=== PATIENT | female | born 1990 | race Caucasian/White ===

== ENCOUNTER 2016-10-28 10:27 | Emergency (ER) | payer MEDICAID ==
[~2016-10-28] VITALS: Ht 172.7 cm; Wt 92.3 kg
[2016-10-28 10:29] VITALS: BP 129/66; TEMP 98.1
[2016-10-28 12:04] LABS: BASO % 0.1 % (0.0-2.0); EOS % 0.1 % (0-4.0); GRAN # 8.3 (1.4-6.5); GRAN % 76.4 % (42.2-75.2); HEMATOCRIT 38.5 % (37.0-47.0); HEMOGLOBIN 12.4 g/dl (12.5-16.0); LYMPH # 1.7 (1.2-3.4); LYMPH % 15.3 % (20.0-51.0); MEAN CELL VOLUME 81 fl (80.0-100.0); MEAN CORPUSCULAR HEMOGLOBIN 26 pg (27.0-31.0); MEAN CORPUSCULAR HGB CONC 32 g/dl (33.0-37.0); MEAN PLATELET VOLUME 10.5 fl (7.4-10.4); MONO # 0.8 (0.1-0.6); MONO % 7.7 % (1.7-9.3); PLATELET COUNT 277 K/mm3 (130-400); RED BLOOD COUNT 4.77 M/mm3 (4.10-5.30); WHITE BLOOD COUNT 10.8 K/mm3 (4.8-10.8)
[2016-10-28 12:12] LABS: ADJUSTED CALCIUM 9.2 mg/dL (8.4-10.2); ALBUMIN 4.3 gm/dL (3.5-5.0); BILIRUBIN,TOTAL 0.8 mg/dL (0.0-1.0); CALCIUM 9.4 mg/dL (8.4-10.2); CREATININE, serum 0.63 mg/dL (0.52-1.25); POTASSIUM 3.4 mmol/L (3.4-5.0); TOTAL PROTEIN 7.6 gm/dL (6.4-8.2)
[2016-10-28 12:47] LABS: PH 5 (5-8); SQUAMOUS EPITHELIAL 20-50 /hpf; URINE APPEARANCE Cloudy; URINE BACTERIA Occasional /hpf; URINE BILIRUBIN Negative (NEGATIVE); URINE BLOOD Negative (NEGATIVE); URINE COLOR Amber; URINE GLUCOSE Negative (NEGATIVE); URINE KETONE 2+ (NEGATIVE)
[2016-10-28 12:53] LABS: URINE WBC >50 /hpf
[2016-10-28] MEDS ORDERED: MACROBID 1100 MG/CAP PO (13:07)
[2016-10-28] MEDS ORDERED: ZOFRAN ODT4 MG PO (13:07)
[2016-10-28 14:05] VITALS: PULSE 87
== END 2016-10-28 14:19 | disposition home or self-care (01) ==
LOC: COL.ER 10:27
PROVIDERS: Emergency Medicine
DX: O21.0 Mild hyperemesis gravidarum (principal); Z3A.01 Less than 8 weeks gestation of pregnancy
CPT/HCPCS: J0696; J2765; J7030

== ENCOUNTER 2016-12-02 18:25 | Emergency (ER) | payer MEDICAID ==
[~2016-12-02] VITALS: Ht 172.7 cm; Wt 88.6 kg
[~2016-12-02 18:25] MED LIST: MACROBID 1100 MG/CAP PO; ZOFRAN ODT4 MG PO
[2016-12-02 18:27] VITALS: TEMP 97.6
[2016-12-02] MEDS ORDERED: CONCEPT DHA1 CAP PO (19:30)
[2016-12-02 19:51] LABS: BASO % 0.2 % (0.0-2.0); EOS % 0.1 % (0-4.0); GRAN # 9.2 (1.4-6.5); GRAN % 76.8 % (42.2-75.2); HEMATOCRIT 39.1 % (37.0-47.0); HEMOGLOBIN 13.1 g/dl (12.5-16.0); LYMPH # 1.9 (1.2-3.4); LYMPH % 16.2 % (20.0-51.0); MEAN CELL VOLUME 81 fl (80.0-100.0); MEAN CORPUSCULAR HEMOGLOBIN 27 pg (27.0-31.0); MEAN CORPUSCULAR HGB CONC 34 g/dl (33.0-37.0); MEAN PLATELET VOLUME 9.9 fl (7.4-10.4); MONO # 0.8 (0.1-0.6); MONO % 6.4 % (1.7-9.3); PLATELET COUNT 264 K/mm3 (130-400); RED BLOOD COUNT 4.84 M/mm3 (4.10-5.30); REDCELL DISTRIBUTION WIDTH-CV 15.5 % (11.5-14.5)
[2016-12-02 20:01] LABS: ADJUSTED CALCIUM 9.8 mg/dL (8.4-10.2); ALBUMIN 4.3 gm/dL (3.5-5.0); BILIRUBIN,TOTAL 0.6 mg/dL (0.0-1.0); CREATININE, serum 0.45 mg/dL (0.52-1.25); POTASSIUM 3.3 mmol/L (3.4-5.0); TOTAL PROTEIN 7.7 gm/dL (6.4-8.2)
[2016-12-02 20:42] VITALS: BP 124/69; PULSE 73
== END 2016-12-02 21:15 | disposition home or self-care (01) ==
LOC: COL.ER 18:25
PROVIDERS: Emergency Medicine
DX: O21.9 Vomiting of pregnancy, unspecified (principal); Z3A.14 14 weeks gestation of pregnancy; R00.0 Tachycardia, unspecified
CPT/HCPCS: J2550; J7030

== ENCOUNTER 2017-04-21 17:45 | Inpatient (IN) | payer MEDICAID ==
[~2017-04-21] VITALS: Ht 172.7 cm; Wt 104.3 kg
[~2017-04-21 17:45] MED LIST changes: +CONCEPT DHA1 CAP PO
[2017-04-21 18:30] LABS: MEAN CELL VOLUME 82 fl (80.0-100.0); MEAN CORPUSCULAR HGB CONC 32 g/dl (33.0-37.0); MEAN PLATELET VOLUME 9.6 fl (7.4-10.4); PLATELET COUNT 208 K/mm3 (130-400); RED BLOOD COUNT 4.09 M/mm3 (4.10-5.30)
[2017-04-21 18:34] LABS: HEMATOCRIT 33.5 % (37.0-47.0); HEMOGLOBIN 10.7 g/dl (12.5-16.0); MEAN CORPUSCULAR HEMOGLOBIN 26 pg (27.0-31.0); WHITE BLOOD COUNT 26.2 K/mm3 (4.8-10.8)
[2017-04-21 18:35] LABS: ADD PATHOLOGY DIFF REVIEW NO
[2017-04-21 18:38] LABS: ADJUSTED CALCIUM 9.9 mg/dL (8.4-10.2); ALBUMIN 3.4 gm/dL (3.5-5.0); BILIRUBIN,TOTAL 0.8 mg/dL (0.0-1.0); CALCIUM 9.4 mg/dL (8.4-10.2); CREATININE, serum 0.56 mg/dL (0.52-1.25); POTASSIUM 3.2 mmol/L (3.4-5.0); TOTAL PROTEIN 6.8 gm/dL (6.4-8.2)
[2017-04-21 18:48] LABS: BAND 2 % (0-10); BASOPHIL 1 % (0-2); LYMPHOCYTE 8 % (20.0-51.0); NEUTROPHILS 87 % (42.0-75.2); TOTAL CELLS COUNTED 100
[2017-04-21 18:49] LABS: ANISOCYTOSIS 2+; HYPOCHROMIA 1+; POLYCHROMASIA 1+; ROULEAUX 2+; TOXIC GRANULATION PRESENT
[2017-04-21 18:50] LABS: MICROCYTOSIS 1+; POIKILOCYTOSIS 1+; STOMATOCYTE 1+
[2017-04-21 18:51] LABS: TEAR DROP CELLS 1+
[2017-04-21] MEDS ORDERED: NATURAL IRON65 MG (19:24)
[2017-04-21 19:49] LABS: COLLECTION METHOD CLEAN CATCH
[2017-04-21 19:58] LABS: MUCOUS Present /lpf; PH 5 (5-8); SQUAMOUS EPITHELIAL 20-50 /hpf; URINE APPEARANCE Cloudy; URINE BACTERIA Rare /hpf; URINE BILIRUBIN Negative (NEGATIVE); URINE BLOOD Negative (NEGATIVE); URINE COLOR Amber; URINE GLUCOSE Negative (NEGATIVE); URINE KETONE 2+ (NEGATIVE); URINE LEUKOCYTE ESTERASE 3+ (NEGATIVE); URINE PROTEIN(semi-quant) 3+ (NEGATIVE); URINE RBC 20-50 /hpf
[2017-04-21 20:00] LABS: URINE WBC >50 /hpf
[2017-04-21 20:44] LABS: INFLUENZA A NEGATIVE; INFLUENZA B NEGATIVE
[2017-04-21 20:50] VITALS: BP 135/63; PULSE 119; TEMP 98.7
[2017-04-22] VITALS (11 sets, daily range): BP systolic 103–146; BP diastolic 32–78; PULSE 102–140; TEMP 98–102.7
[2017-04-22 07:39] LABS: MEAN CELL VOLUME 84 fl (80.0-100.0); MEAN CORPUSCULAR HGB CONC 31 g/dl (33.0-37.0); MEAN PLATELET VOLUME 9.8 fl (7.4-10.4); PLATELET COUNT 181 K/mm3 (130-400); RED BLOOD COUNT 3.78 M/mm3 (4.10-5.30)
[2017-04-22 07:40] LABS: HEMATOCRIT 31.9 % (37.0-47.0); MEAN CORPUSCULAR HEMOGLOBIN 26 pg (27.0-31.0); WHITE BLOOD COUNT 22.4 K/mm3 (4.8-10.8)
[2017-04-22 07:49] LABS: BILIRUBIN,TOTAL 0.6 mg/dL (0.0-1.0); CALCIUM 9.2 mg/dL (8.4-10.2); CREATININE, serum 0.59 mg/dL (0.52-1.25); POTASSIUM 3.1 mmol/L (3.4-5.0)
[2017-04-22 08:14] LABS: ARTERIAL BLD GAS O2 SATURATION 95.2 % (92-100); ARTERIAL BLD GAS TCO2 CT 16.4; ARTERIAL BLOOD GAS HCO3 15.6 meq/L (22-26); ARTERIAL BLOOD GAS PO2 82.2 mmHg (80-100); ARTERIAL BLOOD GAS PO2T 82.2 (80-100); OXYHEMOGLOBIN 94.4 %
[2017-04-22 08:15] LABS: ATS? YES
[2017-04-22 09:18] LABS: ADD PATHOLOGY DIFF REVIEW YES; ANISOCYTOSIS 1+; BAND 53 % (0-10); LYMPHOCYTE 9 % (20.0-51.0); METAMYELOCYTE 1 % (0-0); NEUTROPHILS 35 % (42.0-75.2); PLATELET ESTIMATE NORMAL (NORMAL); TOTAL CELLS COUNTED 100
[2017-04-23] VITALS: BP 125/47; PULSE 102; TEMP 99.4
[2017-04-23 04:00] VITALS: BP 134/54; PULSE 101; TEMP 98.6
[2017-04-23 07:10] VITALS: BP 124/68; PULSE 86; TEMP 97.8
[2017-04-23 07:11] LABS: MEAN CELL VOLUME 84 fl (80.0-100.0); MEAN CORPUSCULAR HGB CONC 31 g/dl (33.0-37.0); MEAN PLATELET VOLUME 9.5 fl (7.4-10.4); PLATELET COUNT 174 K/mm3 (130-400); RED BLOOD COUNT 3.49 M/mm3 (4.10-5.30)
[2017-04-23 07:16] LABS: ADD PATHOLOGY DIFF REVIEW NO; HEMATOCRIT 29.2 % (37.0-47.0); HEMOGLOBIN 9.1 g/dl (12.5-16.0); MEAN CORPUSCULAR HEMOGLOBIN 26 pg (27.0-31.0)
[2017-04-23 07:21] LABS: ADJUSTED CALCIUM 10.1 mg/dL (8.4-10.2); ALBUMIN 2.7 gm/dL (3.5-5.0); BILIRUBIN,TOTAL 0.4 mg/dL (0.0-1.0); CALCIUM 9.1 mg/dL (8.4-10.2); CREATININE, serum 0.63 mg/dL (0.52-1.25); TOTAL PROTEIN 5.7 gm/dL (6.4-8.2)
[2017-04-23 07:27] LABS: POTASSIUM 2.7 mmol/L (3.4-5.0)
[2017-04-23 09:55] LABS: ANISOCYTOSIS 1+; BAND 66 % (0-10); LYMPHOCYTE 7 % (20.0-51.0); METAMYELOCYTE 1 % (0-0); NEUTROPHILS 25 % (42.0-75.2); PLATELET ESTIMATE NORMAL (NORMAL); TOTAL CELLS COUNTED 100
[2017-04-23 12:57] VITALS: BP 131/83; PULSE 120; TEMP 98.3
[2017-04-23 16:30] VITALS: BP 117/56; PULSE 101; TEMP 97.9
[2017-04-23 20:00] VITALS: BP 12/57; PULSE 93; TEMP 97.6
[2017-04-24] VITALS: BP 136/49; PULSE 98; TEMP 98.6
[2017-04-24 04:00] VITALS: BP 134/55; PULSE 106; TEMP 99.1
[2017-04-24 07:04] VITALS: BP 143/56; PULSE 90; TEMP 98.1
[2017-04-24 08:02] LABS: PATHOLOGY DIFF REVIEW OK +
[2017-04-24 09:40] LABS: MEAN CELL VOLUME 83 fl (80.0-100.0); MEAN CORPUSCULAR HGB CONC 32 g/dl (33.0-37.0); MEAN PLATELET VOLUME 9.3 fl (7.4-10.4); PLATELET COUNT 193 K/mm3 (130-400); RED BLOOD COUNT 3.74 M/mm3 (4.10-5.30); WHITE BLOOD COUNT 7.9 K/mm3 (4.8-10.8)
[2017-04-24 09:42] LABS: ADD PATHOLOGY DIFF REVIEW NO; HEMOGLOBIN 9.8 g/dl (12.5-16.0); MEAN CORPUSCULAR HEMOGLOBIN 26 pg (27.0-31.0)
[2017-04-24 09:57] LABS: ADJUSTED CALCIUM 9.7 mg/dL (8.4-10.2); ALBUMIN 2.8 gm/dL (3.5-5.0); BILIRUBIN,TOTAL 0.4 mg/dL (0.0-1.0); CALCIUM 8.7 mg/dL (8.4-10.2); CREATININE, serum 0.62 mg/dL (0.52-1.25); POTASSIUM 3.1 mmol/L (3.4-5.0); TOTAL PROTEIN 5.9 gm/dL (6.4-8.2)
[2017-04-24 10:54] LABS: BAND 30 % (0-10); LYMPHOCYTE 13 % (20.0-51.0); NEUTROPHILS 50 % (42.0-75.2); PLATELET ESTIMATE NORMAL (NORMAL); TOTAL CELLS COUNTED 100
[2017-04-24 10:55] LABS: HYPOCHROMIA 1+; MICROCYTOSIS 1+
[2017-04-24 13:52] VITALS: BP 130/52; PULSE 88; TEMP 98.4
[2017-04-24 15:47] VITALS: BP 124/68; PULSE 76; TEMP 97.4
[2017-04-24 16:23] LABS: MAGNESIUM 1.6 mg/dL (1.6-2.3); PHOSPHOROUS 2.8 mg/dL (2.5-4.5)
[2017-04-24 20:00] VITALS: BP 119/69; PULSE 90; TEMP 97.8
[2017-04-25 02:00] VITALS: BP 120/61; PULSE 85; TEMP 98.1
[2017-04-25 07:23] VITALS: BP 117/65; PULSE 85; TEMP 98.4
[2017-04-25 07:27] LABS: MEAN CELL VOLUME 83 fl (80.0-100.0); MEAN CORPUSCULAR HGB CONC 32 g/dl (33.0-37.0); MEAN PLATELET VOLUME 9.6 fl (7.4-10.4); PLATELET COUNT 203 K/mm3 (130-400); RED BLOOD COUNT 3.48 M/mm3 (4.10-5.30); WHITE BLOOD COUNT 7.6 K/mm3 (4.8-10.8)
[2017-04-25 07:31] LABS: ADD PATHOLOGY DIFF REVIEW NO; HEMATOCRIT 28.9 % (37.0-47.0); HEMOGLOBIN 9.1 g/dl (12.5-16.0); MEAN CORPUSCULAR HEMOGLOBIN 26 pg (27.0-31.0)
[2017-04-25 07:36] LABS: ADJUSTED CALCIUM 9.7 mg/dL (8.4-10.2); ALBUMIN 2.4 gm/dL (3.5-5.0); BILIRUBIN,TOTAL 0.2 mg/dL (0.0-1.0); CALCIUM 8.4 mg/dL (8.4-10.2); CREATININE, serum 0.53 mg/dL (0.52-1.25); MAGNESIUM 1.6 mg/dL (1.6-2.3); POTASSIUM 3.1 mmol/L (3.4-5.0); TOTAL PROTEIN 5.2 gm/dL (6.4-8.2)
[2017-04-25] MEDS ORDERED: AMOXICILLIN 8751 TAB PO (08:40)
[2017-04-25] MEDS ORDERED: K-TAB20 PO (08:45)
[2017-04-25] MEDS ORDERED: SLOW-MAG 6464 MG/TAB PO (08:47)
[2017-04-25 09:42] LABS: ANISOCYTOSIS 1+; BAND 53 % (0-10); HYPOCHROMIA 1+; LYMPHOCYTE 23 % (20.0-51.0); METAMYELOCYTE 1 % (0-0); MYELOCYTE 2 % (0-0); NEUTROPHILS 19 % (42.0-75.2); PLATELET ESTIMATE NORMAL (NORMAL); TOTAL CELLS COUNTED 100
== END 2017-04-25 09:50 | disposition home or self-care (01) | DRG 781 ==
LOC: COL.ER 17:45 → OB 20:12
PROVIDERS: Emergency Medicine; Internal Medicine; Nurse Practitioner Family; Obstetrics & Gynecology
DX: O23.03 Infections of kidney in pregnancy, third trimester (principal); O99.283 Endocrine, nutritional and metabolic diseases complicating pregnancy, third trimester; E87.6 Hypokalemia; Z3A.34 34 weeks gestation of pregnancy
CPT/HCPCS: 99223; 99232-AI; C9113; J0696; J1650; J2185; J2270; J2405; J2550; J2765; J3475; J3480; J7030; J7050; J7120

== ENCOUNTER 2017-05-01 07:06 | Inpatient (IN) | payer MEDICAID ==
[~2017-05-01] VITALS: Ht 172.7 cm; Wt 111.8 kg
[~2017-05-01 07:06] MED LIST changes: +AMOXICILLIN 8751 TAB PO; +K-TAB20 PO; +NATURAL IRON65 MG; +SLOW-MAG 6464 MG/TAB PO
[2017-06-07] VITALS (66 sets, daily range): BP systolic 11–164; BP diastolic 34–99; PULSE 67–115; TEMP 97.4–98.7
[2017-06-07] MEDS ORDERED: CALCIUM CARBON650 M2 (07:42)
[2017-06-07] MEDS ORDERED: MAGNESIUM200 MG PO (07:43)
[2017-06-07 08:28] LABS: BASO % 0.1 % (0.0-2.0); EOS % 0.2 % (0-4.0); GRAN % 74.9 % (42.2-75.2); LYMPH # 1.9 (1.2-3.4); LYMPH % 16.1 % (20.0-51.0); MEAN CELL VOLUME 83 fl (80.0-100.0); MEAN CORPUSCULAR HGB CONC 32 g/dl (33.0-37.0); MEAN PLATELET VOLUME 9.6 fl (7.4-10.4); MONO # 0.9 (0.1-0.6); MONO % 7.8 % (1.7-9.3); PLATELET COUNT 231 K/mm3 (130-400); RED BLOOD COUNT 4.36 M/mm3 (4.10-5.30); REDCELL DISTRIBUTION WIDTH-CV 16.5 % (11.5-14.5)
[2017-06-07 08:32] LABS: HEMOGLOBIN 11.4 g/dl (12.5-16.0); MEAN CORPUSCULAR HEMOGLOBIN 26 pg (27.0-31.0)
[2017-06-08] VITALS (7 sets, daily range): BP systolic 118–133; BP diastolic 50–68; PULSE 83–90; TEMP 97.4–98.5
[2017-06-08 08:01] LABS: BASO % 0.2 % (0.0-2.0); GRAN # 15.5 (1.4-6.5); GRAN % 84.7 % (42.2-75.2); LYMPH # 1.5 (1.2-3.4); LYMPH % 8.4 % (20.0-51.0); MEAN CELL VOLUME 82 fl (80.0-100.0); MEAN CORPUSCULAR HGB CONC 32 g/dl (33.0-37.0); MEAN PLATELET VOLUME 10.1 fl (7.4-10.4); MONO # 1.2 (0.1-0.6); MONO % 6.3 % (1.7-9.3); PLATELET COUNT 209 K/mm3 (130-400); RED BLOOD COUNT 3.47 M/mm3 (4.10-5.30); REDCELL DISTRIBUTION WIDTH-CV 16.3 % (11.5-14.5)
[2017-06-08 08:12] LABS: HEMATOCRIT 28.6 % (37.0-47.0); HEMOGLOBIN 9.1 g/dl (12.5-16.0); MEAN CORPUSCULAR HEMOGLOBIN 26 pg (27.0-31.0)
[2017-06-09 08:37] VITALS: BP 129/66; PULSE 92; TEMP 98.6
[2017-06-09] MEDS ORDERED: PERCOCET 325 MG1 TA2 PO (08:49)
[2017-06-09] MEDS ORDERED: IBU600 MG PO (08:49)
[2017-06-09 16:02] VITALS: BP 123/78; PULSE 70; TEMP 98.3
[2017-06-09 20:00] VITALS: BP 117/58; PULSE 86; TEMP 98.3
[2017-06-10 08:00] VITALS: BP 134/64; PULSE 89; TEMP 97.8
== END 2017-06-10 12:50 | disposition home or self-care (01) | DRG 766 ==
LOC: LDR 05-18 07:06 → OB 06-07 23:10
PROVIDERS: Obstetrics & Gynecology
PROC: 10D00Z1 Extraction of Products of Conception, Low, Open Approach (ICD-10-PCS; principal; 2017-06-07)
PROC: 3E033VJ Introduction of Other Hormone into Peripheral Vein, Percutaneous Approach (ICD-10-PCS; 2017-06-07)
DX: O48.0 Post-term pregnancy (principal); O77.0 Labor and delivery complicated by meconium in amniotic fluid; O62.1 Secondary uterine inertia; O36.63X0 Maternal care for excessive fetal growth, third trimester, not applicable or unspecified; O69.81X0 Labor and delivery complicated by cord around neck, without compression, not applicable or unspecified; Z3A.40 40 weeks gestation of pregnancy; Z37.0 Single live birth
CPT/HCPCS: J0690; J1885; J2175; J2270; J2370; J2400; J2405; J2590; J3010; J7120

== ENCOUNTER 2018-09-25 21:18 | Emergency (ER) | payer MEDICAID ==
[~2018-09-25] VITALS: Ht 172.7 cm; Wt 88.6 kg
[~2018-09-25 21:18] MED LIST changes: +CALCIUM CARBON650 M2; +IBU600 MG PO; +MAGNESIUM200 MG PO; +PERCOCET 325 MG1 TA2 PO
[2018-09-25 21:23] VITALS: TEMP 97.1
[2018-09-25 21:45] LABS: BASO % 0.2 % (0.0-2.0); EOS % 0.2 % (0-4.0); GRAN # 10.3 (1.4-6.5); HEMOGLOBIN 12.2 g/dl (12.5-16.0); MEAN CELL VOLUME 86 fl (80.0-100.0); MEAN CORPUSCULAR HEMOGLOBIN 28 pg (27.0-31.0); MEAN CORPUSCULAR HGB CONC 33 g/dl (33.0-37.0); MEAN PLATELET VOLUME 9.5 fl (7.4-10.4); MONO # 0.7 (0.1-0.6); PLATELET COUNT 256 K/mm3 (130-400); RED BLOOD COUNT 4.31 M/mm3 (4.10-5.30); REDCELL DISTRIBUTION WIDTH-CV 12.9 % (11.5-14.5)
[2018-09-25 21:56] LABS: ALANINE AMINOTRANSFERASE < 6 U/L (9-52); ALBUMIN 3.6 gm/dL (3.5-5.0); ALKALINE PHOSPHATASE 58 U/L (50-136); ANION GAP 9 mmol/L (7-16); AST,SGOT 16 U/L (15-37); BILIRUBIN,TOTAL 0.4 mg/dL (0.0-1.0); BLOOD UREA NITROGEN 4 mg/dL (7-17); CALCIUM 9.1 mg/dL (8.4-10.2); CARBON DIOXIDE 20 mmol/L (22-30); CHLORIDE 107 mmol/L (98-107); CREATININE, serum 0.43 (0.52-1.25); GLUCOSE 106 mg/dL (74-106); LIPASE 52 U/L (23-300); POTASSIUM 3.7 mmol/L (3.4-5.0); SODIUM 135 mmol/L (137-145); TOTAL PROTEIN 7.1 gm/dL (6.4-8.2)
[2018-09-25 22:02] LABS: HEMATOCRIT 36.9 % (37.0-47.0)
[2018-09-25 23:48] LABS: COLLECTION METHOD CLEAN CATCH
[2018-09-25 23:53] LABS: MUCOUS Present /lpf; PH 6 (5-8); SQUAMOUS EPITHELIAL 0-2 /hpf; URINE APPEARANCE Clear; URINE BACTERIA Rare /hpf; URINE BILIRUBIN Negative (NEGATIVE); URINE BLOOD Negative (NEGATIVE); URINE COLOR Straw; URINE GLUCOSE Negative (NEGATIVE); URINE KETONE Negative (NEGATIVE); URINE LEUKOCYTE ESTERASE Negative (NEGATIVE); URINE NITRATE Negative (NEGATIVE); URINE PROTEIN(semi-quant) Negative (NEGATIVE); URINE RBC 0-2 /hpf; URINE UROBILINOGEN Negative (NEGATIVE)
[2018-09-26 00:55] VITALS: BP 109/56; PULSE 68
== END 2018-09-26 00:58 | disposition home or self-care (01) ==
LOC: COL.ER 21:18
PROVIDERS: Nurse Practitioner
DX: R10.13 Epigastric pain (principal)
CPT/HCPCS: J2550; J3010; J7030

== ENCOUNTER 2019-02-01 08:40 | Inpatient (IN) | payer MEDICAID ==
[2019-02-01] VITALS (17 sets, daily range): BP systolic 105–135; BP diastolic 46–72; PULSE 61–93; TEMP 97.5–98.3
[~2019-02-01] VITALS: Ht 167.6 cm; Wt 105.5 kg
--- NOTE | 2019-02-01 11:45 | NUR ---
Pt arrives on unit ambulatory for repeat csection. Changed into clean gown. EFM and toco applied. VSS. Denies vaginal bleeding, LOF, and regular ctx. Reports GFM. IV started in RH. Labs drawn. LR infusing. Admission assessment completed consents signed. Skin prep performed. Pt updated on POC. Safety reviewed. No questions or concerns at this time. Bed locked in low position. Call light within reach.
[2019-02-01 12:27] LABS: BASO % 0.1 % (0.0-2.0); EOS % 0.1 % (0-4.0); GRAN # 10.5 (1.4-6.5); GRAN % 77.6 % (42.2-75.2); HEMOGLOBIN 11.2 g/dl (12.5-16.0); LYMPH # 1.8 (1.2-3.4); LYMPH % 13.5 % (20.0-51.0); MEAN CELL VOLUME 81 fl (80.0-100.0); MEAN CORPUSCULAR HEMOGLOBIN 26 pg (27.0-31.0); MEAN CORPUSCULAR HGB CONC 32 g/dl (33.0-37.0); MEAN PLATELET VOLUME 9.8 fl (7.4-10.4); MONO % 7.7 % (1.7-9.3); PLATELET COUNT 228 K/mm3 (130-400); RED BLOOD COUNT 4.36 M/mm3 (4.10-5.30); REDCELL DISTRIBUTION WIDTH-CV 15.1 % (11.5-14.5)
[2019-02-01 12:30] LABS: HEMATOCRIT 35.5 % (37.0-47.0)
--- NOTE | 2019-02-01 22:50 | NUR ---
up to bathroom with slow, careful gait. [place] catheter dc'd. Performs own pericare. clean gown on and ambulates out into hallway before returning to bed.
[2019-02-02 03:00] VITALS: BP 120/68; PULSE 70; TEMP 98.5
[2019-02-02 09:05] VITALS: BP 115/61; PULSE 99; TEMP 98.2
[2019-02-02 16:19] VITALS: BP 128/58; PULSE 63; TEMP 98
[2019-02-02 22:00] VITALS: BP 123/63; PULSE 79; TEMP 99.4
[2019-02-03 07:30] VITALS: BP 95/75; PULSE 79; TEMP 97.8
[2019-02-03] MEDS ORDERED: IBU600 MG PO (09:15)
[2019-02-03] MEDS ORDERED: PERCOCET 325 MG1 TA2 PO (09:16)
== END 2019-02-03 13:40 | disposition home or self-care (01) | DRG 788 ==
LOC: LDR 08:40 → OB 11:34
PROVIDERS: ADMIT Obstetrics & Gynecology
PROC: 10D00Z1 Extraction of Products of Conception, Low, Open Approach (ICD-10-PCS; principal; 2019-02-01)
DX: O34.211 Maternal care for low transverse scar from previous cesarean delivery (principal); O99.02 Anemia complicating childbirth; D64.9 Anemia, unspecified; Z3A.39 39 weeks gestation of pregnancy; Z37.0 Single live birth; R87.612 Low grade squamous intraepithelial lesion on cytologic smear of cervix (LGSIL); O75.89 Other specified complications of labor and delivery; O99.214 Obesity complicating childbirth; E66.9 Obesity, unspecified
CPT/HCPCS: J0690; J1885; J2370; J2405; J2590; J3010; J7120

== ENCOUNTER 2020-03-07 20:39 | Emergency (ER) | payer MEDICAID ==
[~2020-03-07] VITALS: Ht 172.7 cm; Wt 96.8 kg
[2020-03-07 21:12] VITALS: TEMP 98.5
[2020-03-07 21:42] VITALS: BP 113/65; PULSE 90
== END 2020-03-07 21:45 | disposition home or self-care (01) ==
LOC: COL.ER 20:39
DX: K02.9 Dental caries, unspecified (principal)

== ENCOUNTER 2021-12-26 17:57 | Emergency (ER) | payer MEDICAID ==
[~2021-12-26] VITALS: Ht 172.7 cm; Wt 93.2 kg
[2021-12-26 18:09] VITALS: BP 125/73; PULSE 87; TEMP 97.7
[2021-12-26] MEDS ORDERED: NORCO 325 MG-51 TAB PO (19:27)
[2021-12-26] MEDS ORDERED: BACTRIM DS 8001 TAB PO (19:27)
== END 2021-12-26 19:50 | disposition home or self-care (01) ==
LOC: COL.ER 17:57
DX: N76.4 Abscess of vulva (principal); Z28.310 Unvaccinated for COVID-19

== ENCOUNTER 2022-08-20 14:45 | Emergency (ER) | payer MEDICAID ==
[~2022-08-20] VITALS: Ht 172.7 cm; Wt 86.4 kg
[~2022-08-20 14:45] MED LIST changes: +BACTRIM DS 8001 TAB PO; +NORCO 325 MG-51 TAB PO
[2022-08-20 16:11] LABS: BASO % 0.2 % (0.0-2.0); EOS % 0.3 % (0.0-4.0); GRAN # 4.1 K/mm3 (1.4-6.5); GRAN % 62.4 % (42.2-75.2); HEMATOCRIT 39.9 % (37.0-47.0); HEMOGLOBIN 12.6 g/dl (12.5-16.0); LYMPH # 1.9 K/mm3 (1.2-3.4); LYMPH % 29.6 % (20.0-51.0); MEAN CELL VOLUME 89 fl (80.0-100.0); MEAN CORPUSCULAR HEMOGLOBIN 28 pg (27-31); MEAN CORPUSCULAR HGB CONC 32 g/dl (33.0-37.0); MEAN PLATELET VOLUME 9.7 fl (7.4-10.4); MONO # 0.5 K/mm3 (0.1-0.6); MONO % 7.3 % (1.7-9.3); PLATELET COUNT 233 K/mm3 (130-400); REDCELL DISTRIBUTION WIDTH-CV 12.7 % (11.5-14.5)
[2022-08-20 16:26] LABS: COLLECTION METHOD CLEAN CATCH
[2022-08-20 16:30] LABS: ALBUMIN 4.1 gm/dL (3.5-5.0); BILIRUBIN,TOTAL 0.5 mg/dL (0.2-1.2); CALCIUM 9.5 mg/dL (8.4-10.2); CREATININE, serum 0.78 mg/dL (0.57-1.11); MAGNESIUM 1.8 mg/dL (1.6-2.6); PHOSPHOROUS 3.5 mg/dL (2.3-4.7); POTASSIUM 3.6 mmol/L (3.5-4.5); TOTAL PROTEIN 6.9 gm/dL (6.2-8.1)
[2022-08-20 16:31] LABS: URINE APPEARANCE Clear (CLEAR/HAZY); URINE BLOOD Negative (NEGATIVE); URINE COLOR Yellow (YELLOW); URINE GLUCOSE Negative (NEGATIVE); URINE KETONE Negative (NEGATIVE); URINE NITRATE Negative (NEGATIVE); URINE PROTEIN(semi-quant) Negative (NEGATIVE); URINE UROBILINOGEN 0.2 E.U/dL (0.2-1.0)
[2022-08-20 16:34] LABS: SQUAMOUS EPITHELIAL 0-2 /hpf (0-10); URINE BACTERIA None Seen /hpf (NONE SEEN); URINE RBC 0-2 /hpf (0-2); URINE WBC 0-2 /hpf (0-2)
[2022-08-20] MEDS ORDERED: MIRALAX119G PO (17:22)
[2022-08-20] MEDS ORDERED: BENTYL 20MG20 MG/TAB PO (17:22)
[2022-08-20 18:03] VITALS: BP 121/82; PULSE 74; TEMP 98
== END 2022-08-20 18:04 | disposition home or self-care (01) ==
LOC: COL.ER 14:45
PROVIDERS: Emergency Medicine
DX: R10.84 Generalized abdominal pain (principal); K59.00 Constipation, unspecified; Z28.310 Unvaccinated for COVID-19; Z20.822 Contact with and (suspected) exposure to COVID-19
CPT/HCPCS: J7120; Q9967